=== PATIENT | female | born 1970 | race Hispanic/Latino ===

== ENCOUNTER 2020-08-08 15:38 | Emergency (ER) | payer SELFPAY ==
[2020-08-08 15:50] VITALS: BP 159/77; PULSE 88; RESP 18; TEMP 36.6; O2SAT 100
[2020-08-08 16:19] LABS: INR 1.1 (0.9-1.3); Prothrombin Time 12.2 SECONDS (10.1-12.7)
[2020-08-08 16:21] LABS: PTT Partial Thromboplastin Tim 30 SECONDS (26.4-36.2)
[2020-08-08 16:26] LABS: Alanine Aminotransferase 33 IU/L (<35); Albumin 4.5 g/dL (3.5-5.0); Albumin Globulin Ratio 1.3 (1.0-2.8); Alkaline Phosphatase 143 U/L (38-126); Aspartate Aminotransferase 29 IU/L (14-36); BUN Creatinine Ratio 22.7 (6-22); Bilirubin Total 0.6 mg/dL (0.2-1.3); Blood Urea Nitrogen 10 mg/dL (7-17); Calcium 9.5 mg/dL (8.4-10.2); Carbon Dioxide 22 mmol/L (22-32); Chloride 99 mmol/L (98-107); Estimated Glomerular Filt Rate > 60.0 mL/min (>60); Globulin 3.5 g/dL (1.7-4.1); Glucose 138 mg/dL (70-100); HEMOLYSIS < 15 (0-50); Lipase 48 U/L (23-300); Potassium 3.6 mmol/L (3.4-5.1); Sodium 130 mmol/L (137-145)
[2020-08-08 16:44] LABS: Add Manual Diff / Slide Review NO; Basophils Absolute Auto 100 /uL (0-100); Basophils Percent Auto 0.9 % (0-2); Eosinophils Absolute Auto 100 /uL (0-450); Eosinophils Percent Auto 1.3 % (2-4); Hematocrit 42.3 % (36-46); Hemoglobin 14.3 g/dL (12.0-16.0); Lymphocytes Absolute Auto 3500 /uL (1100-4500); Lymphocytes Percent Auto 32.8 % (25-40); Mean Corpuscular HGB Conc 33.8 % (30-36); Mean Corpuscular Hemoglobin 28.4 PG (26-34); Mean Corpuscular Volume 84.1 fL (80-100); Monocytes Absolute Auto 600 /uL (0-900); Monocytes Percent Auto 5.7 % (3-14); Neutrophils Absolute Auto 6200 /uL (1500-7000); Neutrophils Percent Auto 59.3 % (50-75); Platelet Count 252 X10^3/uL (150-400); Red Blood Cell Count 5.03 X10^6/uL (4.0-5.2); Red Cell Distribution Width 13.9 % (11.6-14.8); White Blood Cell Count 10.6 X10^3/uL (4.5-11.0)
--- NOTE | 2020-08-08 17:16 | ED_ITS ---
HPI - Abdominal Pain General Chief Complaint: Abdominal Pain Stated Complaint: SEVERE ABD PAIN HURTS TO SIT Time Seen by Provider: 08/08/20 17:13 Source: patient Mode of arrival: Ambulatory Limitations: no limitations History of Present Illness HPI narrative: Patient is a 50-year-old female with no known medical problems presenting with periumbilical pain ongoing for last few hours. She said it started after lunch. No nausea vomiting fever or diarrhea. She denies any painful or frequent urination. MD complaint: abdominal pain Onset (ago): hour(s) Location: periumbilical Migration to: no migration Relieving factors: nothing Exacerbating factors: nothing Related Data Home Medications Medication Instructions Recorded Confirmed No Known Home Medications 09/06/19 09/06/19 Previous Rx's Medication Instructions Recorded cyclobenzaprine 10 mg tablet 10 mg PO BID #14 tab 09/06/19 Allergies Allergy/AdvReac Type Severity Reaction Status Date / Time No Known Drug Allergies Allergy Unverified 09/06/19 09:49 Review of Systems Review of Systems Narrative: GENERAL: Denies chills, fatigue, malaise, fever, sweats, travel HEENT: Denies sinus pain, ear pain, sore throat, difficulty swallowing, neck pain RESPIRATORY: Denies dyspnea, cough, wheezing, hemoptysis, sputum. CARDIOVASCULAR: Denies chest pain, palpitations, orthopnea, edema GASTROINTESTINAL: See HPI : Denies dysuria, frequency, incontinence, hematuria, urinary retention, flank pain. MUSCULOSKELETAL: Denies weakness, joint pain, or bony pain SKIN: No rash, no erythema, no pruritus NEUROLOGIC: Denies weakness, dizziness, headache, numbness, change in speech, confusion PSYCHIATRIC: No concerning psychosocial issues. 12 point review of systems is negative except for those stated above and HPI Patient History Medical History Low back pain Social History Smoking Status: Never smoker Smoking Status: Never smoker Substance Use Type: does not use Exam Initial Vital Signs Initial Vital Signs: Vital Signs Temperature 97.8 F 08/08/20 15:50 Pulse Rate 88 08/08/20 15:50 Respiratory Rate 18 08/08/20 15:50 Blood Pressure 159/77 H 08/08/20 15:50 Pulse Oximetry 100 08/08/20 15:50 GENERAL: Alert 50-year-old female appears in pain and in no acute distress. HEENT: Head atraumatic,EOMI, pupils reactive, face symmetric, moist mucous membranes CARDIOVASCULAR: Regular rate and rhythm without murmurs, rubs or gallops. RESPIRATORY: Breath sounds equal bilaterally, no wheezes rales or rhonchi. ABDOMEN: Soft, nontender. Normoactive bowel sounds all 4 quadrants. No guarding or rebound. : No CVA tenderness EXTREMITIES: Normal range of motion, no clubbing or edema. Neurovascularly intact NEUROLOGICAL: Alert and oriented x4.Normal gait and speech. SKIN: Warm, dry, no laceration, no petechiae, no rashes or lesions. Course Orders Ordered: ED Orders 08/08/20 15:23 Urine Microscopic Stat 08/08/20 15:54 EKG-12 Lead Stat 08/08/20 16:05 Complete Blood Count AUTO DIFF Stat Comprehensive Metabolic Panel Stat Lipase Stat Partial Thromboplastin Time Stat Prothrombin Time INR Stat 08/08/20 17:22 CT abdomen pelvis w con Stat Discontinued Medications Ketorolac Tromethamine (Ketorolac 60 Mg/2 Ml Vial) 30 mg IV NOW ONE Stop: 08/08/20 17:23 Last Admin: 08/08/20 17:32 Dose: 30 mg Documented by: [email or web address] Magnesium Citrate (Magnesium Citrate 300 Ml Solution) 300 ml PO NOW ONE Stop: 08/08/20 18:30 Last Admin: 08/08/20 18:35 Dose: 300 ml Documented by: [email or web address] Vital Signs Vital signs: Vital Signs - 8 hr 08/08/20 15:50 08/08/20 18:36 Temperature 97.8 F Pulse Rate 88 89 Respiratory Rate 18 16 Blood Pressure 159/77 H 124/70 Pulse Oximetry 100 97 MDM - Abdominal Pain Lab Data Attestation: I reviewed the patient's lab results. Result diagrams: 08/08/20 16:05 08/08/20 16:05 Labs: Lab Results 08/08/20 08/08/20 08/08/20 Range/Units 15:23 16:05 16:05 WBC 10.6 (4.5-11.0) X10^3/uL RBC 5.03 (4.0-5.2) X10^6/uL Hgb 14.3 (12.0-16.0) g/dL Hct 42.3 (36-46) % MCV 84.1 (80-100) fL MCH 28.4 (26-34) PG MCHC 33.8 (30-36) % RDW 13.9 (11.6-14.8) % Plt Count 252 (150-400) X10^3/uL Neut % (Auto) 59.3 (50-75) % Lymph % (Auto) 32.8 (25-40) % [place] % (Auto) 5.7 (3-14) % Eos % (Auto) 1.3 L (2-4) % Baso % (Auto) 0.9 (0-2) % Neut # (Auto) 6200 (6068-7208) /uL Lymph # (Auto) 3500 (9710-3440) /uL [place] # (Auto) 600 (0-900) /uL Eos # (Auto) 100 (0-450) /uL Baso # (Auto) 100 (0-100) /uL PT 12.2 (10.1-12.7) SECONDS INR 1.1 (0.9-1.3) APTT 30 (26.4-36.2) SECONDS Sodium (137-145) mmol/L Potassium (3.4-5.1) mmol/L Chloride (98-107) mmol/L Carbon Dioxide (22-32) mmol/L BUN (7-17) mg/dL Creatinine (0.52-1.04) mg/dL Estimated GFR (>60) mL/min BUN/Creatinine Ratio (6-22) Glucose (70-100) mg/dL Calcium (8.4-10.2) mg/dL Total Bilirubin (0.2-1.3) mg/dL AST (14-36) IU/L ALT (<35) IU/L Alkaline Phosphatase (38-126) U/L Total Protein (6.3-8.2) g/dL Albumin (3.5-5.0) g/dL Globulin (1.7-4.1) g/dL Albumin/Globulin Ratio (1.0-2.8) Lipase (23-300) U/L Urine RBC None seen (0-5/HPF) Urine WBC None seen (0-5/HPF) Urine Bacteria None seen (None) Ur Culture Indicated? Cult not indicated 08/08/20 Range/Units 16:05 WBC (4.5-11.0) X10^3/uL RBC (4.0-5.2) X10^6/uL Hgb (12.0-16.0) g/dL Hct (36-46) % MCV (80-100) fL MCH (26-34) PG MCHC (30-36) % RDW (11.6-14.8) % Plt Count (150-400) X10^3/uL Neut % (Auto) (50-75) % Lymph % (Auto) (25-40) % [place] % (Auto) (3-14) % Eos % (Auto) (2-4) % Baso % (Auto) (0-2) % Neut # (Auto) (2735-8347) /uL Lymph # (Auto) (0105-9415) /uL [place] # (Auto) (0-900) /uL Eos # (Auto) (0-450) /uL Baso # (Auto) (0-100) /uL PT (10.1-12.7) SECONDS INR (0.9-1.3) APTT (26.4-36.2) SECONDS Sodium 130 L (137-145) mmol/L Potassium 3.6 (3.4-5.1) mmol/L Chloride 99 (98-107) mmol/L Carbon Dioxide 22 (22-32) mmol/L BUN 10 (7-17) mg/dL Creatinine 0.44 L (0.52-1.04) mg/dL Estimated GFR > 60.0 (>60) mL/min BUN/Creatinine Ratio 22.7 H (6-22) Glucose 138 H (70-100) mg/dL Calcium 9.5 (8.4-10.2) mg/dL Total Bilirubin 0.6 (0.2-1.3) mg/dL AST 29 (14-36) IU/L ALT 33 (<35) IU/L Alkaline Phosphatase 143 H (38-126) U/L Total Protein 8.0 (6.3-8.2) g/dL Albumin 4.5 (3.5-5.0) g/dL Globulin 3.5 (1.7-4.1) g/dL Albumin/Globulin Ratio 1.3 (1.0-2.8) Lipase 48 (23-300) U/L Urine RBC (0-5/HPF) Urine WBC (0-5/HPF) Urine Bacteria (None) Ur Culture Indicated? Point of care testing: Point of Care Testing Test Results Negative Urine Dip Bedside Urine Glucose Negative Bedside Urine Bilirubin - Negative Bedside Urine Ketone ++ 40 Urine Specific [place] 1.015 Bedside Urine Occult Blood - Negative Bedside Urine pH 8 Bedside Urine Protein - Negative Bedside Urine Urobilinogen - Negative Bedside Urine Nitrite - Negative Bedside Urine Leukocytes - Negative Esterase Imaging Data CT scan - abdomen/pelvis: Radiologist's Impression: PROCEDURE: CT ABDOMEN PELVIS W CON INDICATIONS: periumbilical pain TECHNIQUE: After the administration of intravenous contrast, 5 mm thick sections acquired from the diaphragm to the symphysis. 5 mm coronal and sagittal reformats were acquired. For radiation dose reduction, the following was used: automated exposure control, adjustment of mA and/or kV according to patient size. COMPARISON: None. FINDINGS: Image quality: Excellent. ABDOMEN: Lung bases: Lung bases are clear. Heart size is normal. Solid organs: Liver is normal in size and enhancement. Gallbladder is relatively poorly seen but likely is normal, with motion blurring the gallbladder margins. Biliary system is non dilated. Pancreas enhances normally. Spleen is normal in size and enhancement. No adrenal nodules. Kidneys demonstrate normal size and enhancement, without hydronephrosis. Peritoneum and bowel: Bowel loops demonstrate normal wall thickness and caliber. No free fluid or air. Nodes and vessels: No retroperitoneal or mesenteric adenopathy by size criteria. Aorta and inferior vena cava are normal in size. Miscellaneous: No ventral hernias. PELVIS: Genitourinary: Bladder wall thickness is normal. Miscellaneous: No inguinal hernias or adenopathy. An elongated appendix is seen at the right lower quadrant, with no evidence of inflammation. Small bowel loops are mildly dilated within the lower abdomen and pelvis measuring up to 3.1 cm in maximal dimension. An etiology for this finding is indeterminate. Bones: No suspicious bony lesions. No vertebral body compression fractures. IMPRESSION: No appendicitis present. No abscess found. Small bowel loops are prominent in caliber within the lower abdomen pelvis, but without pneumatosis or a helical site of small bowel obstruction. Small-bowel ileus is the likely cause. Dictated by: Uriel Becker M.D. on 08/08/2020 at 18:10 MDM Narrative Medical decision making narrative: Patient's pain is slightly improved after Toradol. Blood work and CT are overall reassuring. CT does suggest possible ileus. But no bowel obstruction she also has no prior history of surgery. Recommend magnesium citrate, and return to ED if pain is worsening. Discharge Plan Departure Patient Disposition: Home Clinical Impression: Abdominal pain Qualifiers: Abdominal location: periumbilical Qualified Code(s): R10.33 - Periumbilical pain Instructions: DI for Abdominal Pain-Adult Activity Restrictions/Additional Instructions: *You have been diagnosed with abdominal pain *What to do: Increase activity as tolerated. May increase food as tolerated *Continue to take medications as directed Tylenol 650 mg 346 hours if needed for [id number] pain Take magnesium citrate 1/2 bottle wait 6 hours if still having pain and no bowel movement then take the other half *Follow up with your primary care provider in 2-3 days *Return to ER if you should have increasing pain, persistent vomiting, diarrhea, fever or any new, worsening or concerning symptoms Prescriptions: No Action No Known Home Medications RF: 0 cyclobenzaprine 10 mg tablet 10 mg PO BID Qty: 14 RF: 0 Stand Alone Forms: Work Release Note
--- NOTE | 2020-08-08 17:22 | DI.CT.S_ITS ---
PROCEDURE: CT ABDOMEN PELVIS W CON INDICATIONS: periumbilical pain TECHNIQUE: After the administration of intravenous contrast, 5 mm thick sections acquired from the diaphragm to the symphysis. 5 mm coronal and sagittal reformats were acquired. For radiation dose reduction, the following was used: automated exposure control, adjustment of mA and/or kV according to patient size. COMPARISON: None. FINDINGS: Image quality: Excellent. ABDOMEN: Lung bases: Lung bases are clear. Heart size is normal. Solid organs: Liver is normal in size and enhancement. Gallbladder is relatively poorly seen but likely is normal, with motion blurring the gallbladder margins. Biliary system is non dilated. Pancreas enhances normally. Spleen is normal in size and enhancement. No adrenal nodules. Kidneys demonstrate normal size and enhancement, without hydronephrosis. Peritoneum and bowel: Bowel loops demonstrate normal wall thickness and caliber. No free fluid or air. Nodes and vessels: No retroperitoneal or mesenteric adenopathy by size criteria. Aorta and inferior vena cava are normal in size. Miscellaneous: No ventral hernias. PELVIS: Genitourinary: Bladder wall thickness is normal. Miscellaneous: No inguinal hernias or adenopathy. An elongated appendix is seen at the right lower quadrant, with no evidence of inflammation. Small bowel loops are mildly dilated within the lower abdomen and pelvis measuring up to 3.1 cm in maximal dimension. An etiology for this finding is indeterminate. Bones: No suspicious bony lesions. No vertebral body compression fractures. IMPRESSION: No appendicitis present. No abscess found. Small bowel loops are prominent in caliber within the lower abdomen pelvis, but without pneumatosis or a helical site of small bowel obstruction. Small-bowel ileus is the likely cause. Dictated by: Uriel Becker M.D. on 08/08/2020 at 18:10 Approved by: Uriel Becker M.D. on 08/08/2020 at 18:13
[2020-08-08] MEDS: KETOROLAC 60 MG/2 ML VIAL 30 MG IV (17:32)
[2020-08-08 18:22] LABS: Bacteria Urine None Seen; RBC Urine None Seen (0-5/HPF); WBC Urine None Seen (0-5/HPF)
[2020-08-08] MEDS: MAGNESIUM CITRATE 300 ML SOLUTION PO (18:35)
[2020-08-08 18:36] VITALS: BP 124/70; PULSE 89; RESP 16; O2SAT 97
[2020-08-08 18:54] LABS: Culture Indicated Urine Cult Not Indicated
== END 2020-08-08 18:38 | disposition home or self-care (01) ==
PROVIDERS: Emergency Provider Emergency Medicine
DX: R10.33 Periumbilical pain (principal)
CPT/HCPCS: 36415; 74177; 80053; 81003; 81015; 81025; 83690; 85025; 85610; 85730; 93005; 93010; 96374; 99283; 99284; J1885; Q9967

== ENCOUNTER 2022-07-18 18:10 | Emergency (ER) | payer OTHER, SELFPAY ==
[2022-07-18 18:12] VITALS: BP 156/108; PULSE 107; RESP 15; TEMP 36.7; O2SAT 98; BMI 25.4
[2022-07-18 18:53] VITALS: BP 148/98; PULSE 102; RESP 16; TEMP 36.8; O2SAT 97
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
[2022-07-18 19:45] VITALS: BP 175/88; PULSE 106; RESP 17; TEMP 36.6; O2SAT 98
== END 2022-07-18 19:40 | disposition home or self-care (01) ==
PROVIDERS: Emergency Provider Emergency Medicine
DX: S06.0X0A Concussion without loss of consciousness, initial encounter (principal); V89.2XXA Person injured in unspecified motor-vehicle accident, traffic, initial encounter
CPT/HCPCS: 99281; 99284

== ENCOUNTER 2024-09-23 15:30 | Emergency (ER) | payer SELFPAY ==
[2024-09-23 15:47] VITALS: BP 125/75; PULSE 97; RESP 18; TEMP 36.9; O2SAT 97; BMI 21.4
[2024-09-23] MEDS: ONDANSETRON 4 MG/2 ML INJ IV (16:22)
[2024-09-23 16:34] LABS: Alanine Aminotransferase 17 IU/L (<35); Albumin 4.4 g/dL (3.5-5.0); Albumin Globulin Ratio 1.4 (1.0-2.8); Alkaline Phosphatase 123 U/L (38-126); Aspartate Aminotransferase 23 IU/L (14-36); BUN Creatinine Ratio 43.8 (6-22); Bilirubin Total 0.7 mg/dL (0.2-1.3); Blood Urea Nitrogen 14 mg/dL (7-17); Calcium 9.7 mg/dL (8.4-10.2); Carbon Dioxide 20 mmol/L (22-32); Chloride 102 mmol/L (98-107); Estimated Glomerular Filt Rate > 60 mL/min (>60); Globulin 3.2 g/dL (1.7-4.1); Glucose 307 mg/dL (70-100); HEMOLYSIS 25 (0-50); Lipase 56 U/L (23-300); Potassium 4.3 mmol/L (3.4-5.1); Sodium 132 mmol/L (137-145); Total Protein 7.6 g/dL (6.3-8.2)
[2024-09-23 16:35] LABS: Add Manual Diff / Slide Review NO; Basophils Absolute Auto 100 /uL (0-100); Basophils Percent Auto 1.3 % (0-2); Eosinophils Absolute Auto 100 /uL (0-450); Eosinophils Percent Auto 1.3 % (2-4); Hematocrit 44.4 % (36-46); Hemoglobin 15.2 g/dL (12.0-16.0); Lymphocytes Absolute Auto 2300 /uL (1100-4500); Lymphocytes Percent Auto 32.3 % (25-40); Mean Corpuscular HGB Conc 34.3 % (30-36); Mean Corpuscular Hemoglobin 30.5 PG (26-34); Mean Corpuscular Volume 88.8 fL (80-100); Monocytes Absolute Auto 400 /uL (0-900); Monocytes Percent Auto 6.2 % (3-14); Neutrophils Absolute Auto 4200 /uL (1500-7000); Neutrophils Percent Auto 58.9 % (50-75); Platelet Count 281 X10^3/uL (150-400); Red Cell Distribution Width 12.7 % (11.6-14.8); White Blood Cell Count 7.2 X10^3/uL (4.5-11.0)
[2024-09-23 17:30] VITALS: BP 107/73; PULSE 95; RESP 12; O2SAT 99
--- NOTE | 2024-09-23 18:56 | DI.US.S_ITS ---
PROCEDURE: US ABDOMEN LIMITED INDICATIONS: PAIN TECHNIQUE: Real-time scanning was performed of the abdominal and retroperitoneal organs, with image documentation. COMPARISON: None. FINDINGS: Liver: Liver is normal in size and homogeneous in echotexture. Three calcifications in the right hepatic lobe with the largest measuring 1.2 cm. Gallbladder: Several gallstones measuring up to 1.8 cm. No wall thickening. No pericholecystic edema. Negative sonographic Dennison's sign. Biliary ducts: Intrahepatic bile ducts are non-dilated. Extrahepatic bile duct caliber measures 5.1 mm. Normal is 6-7 mm or less in diameter, or 10 mm or less post-cholecystectomy. Pancreas: Visualized portions of the pancreas are sonographically normal. Miscellaneous: No free abdominal fluid. IMPRESSION: Cholelithiasis without sonographic evidence of acute cholecystitis. Dictated by: Amador Jang M.D. on 09/23/2024 at 20:28 Approved by: Amador Jang M.D. on 09/23/2024 at 20:29
[2024-09-23 20:10] LABS: Bacteria Urine Few (2-10); Calcium Oxalate Crystals Urine Many; Culture Indicated Urine Cult Not Indicated; RBC Urine None Seen (0-5/HPF); Squamous Epithelial Cell Urine None Seen (0-5/HPF); Urine Volume 10mL (spun); WBC Urine None Seen (0-5/HPF)
--- NOTE | 2024-09-23 20:39 | ED_ITS ---
HPI - General Adult General Chief complaint: Abdominal Pain Stated complaint: lower right abd pain Time Seen by Provider: 09/23/24 18:35 Source: patient Mode of arrival: Ambulatory History of Present Illness HPI narrative: 54-year-old woman with no significant medical history has 24 hours of severe right upper quadrant pain radiating through to the back. She does describe it has colicky in nature. She has been diagnosed with gallstones previously. no vomiting, no fevers. She has not having diarrhea. No chest pain or palpitation Related Data Previous Rx's Medication Instructions Recorded oxycodone-acetaminophen 5 mg-325 1 tab PO Q6H PRN pain #14 tabs 09/23/24 mg tablet Allergies Allergy/AdvReac Type Severity Reaction Status Date / Time No Known Drug Allergies Allergy Verified 09/23/24 15:46 Review of Systems Review of Systems Narrative: Pertinent positive and negative findings as per HPI Patient History Medical History (Updated 09/23/24 @ 20:48 by Corinne Gallardo MD) Gallstones Low back pain Social History Smoking Status: Never smoker Smoking Status: Never smoker alcohol intake frequency: holidays/special occasions only Exam Initial Vital Signs Initial Vital Signs: Vital Signs Temperature 98.5 F 09/23/24 15:47 Pulse Rate 97 H 09/23/24 15:47 Respiratory Rate 18 09/23/24 15:47 Blood Pressure 125/75 09/23/24 15:47 Pulse Oximetry 97 09/23/24 15:47 Oxygen Delivery Method Room Air 09/23/24 15:47 General: Healthy appearing, in no acute distress. Able to give a complete and coherent history. Well-nourished well-developed HEENT: Moist mucous membranes, normal sclera with reactive pupils, Respiratory: Lungs are clear to auscultation, no wheezing no rales no rhonchi. Full and symmetrical air movement Cardiac: Regular rate and rhythm Abdomen: Soft, tenderness in the right upper quadrant without rebound or guarding. Skin: Warm and dry, no rashes Neurologic: Grossly neurologically intact with no obvious asymmetries or abnormalities Extremities: No trauma, well perfused Psych: Cooperative, appropriate insight and affect Course Orders Ordered: ED Orders 09/23/24 16:00 Complete Blood Count AUTO DIFF Stat Comprehensive Metabolic Panel Stat Lipase Stat 09/23/24 18:56 US abdomen limited Stat 09/23/24 19:25 Urine Microscopic Stat Ondansetron HCl (Ondansetron 4 Mg/2 Ml Inj) 4 mg IV NOW PRN PRN Reason: Nausea And Vomiting Last Admin: 09/23/24 16:22 Dose: 4 mg Documented By: STAR Ondansetron HCl (Ondansetron 4 Mg Odt) 4 mg PO NOW PRN PRN Reason: Nausea And Vomiting Vital Signs Vital signs: Vital Signs - 8 hr 09/23/24 15:47 09/23/24 17:30 Temperature 98.5 F Pulse Rate 97 H 95 H Respiratory Rate 18 12 Blood Pressure 125/75 107/73 Pulse Oximetry 97 99 Oxygen Delivery Method Room Air Room Air Medical Decision Making Lab Data 09/23/24 16:00 09/23/24 16:00 Labs: Lab Results 09/23/24 09/23/24 Range/Units 16:00 19:25 WBC 7.2 (4.5-11.0) X10^3/uL RBC 5.00 (4.0-5.2) X10^6/uL Hgb 15.2 (12.0-16.0) g/dL Hct 44.4 (36-46) % MCV 88.8 (80-100) fL MCH 30.5 (26-34) PG MCHC 34.3 (30-36) % RDW 12.7 (11.6-14.8) % Plt Count 281 (150-400) X10^3/uL Neut % (Auto) 58.9 (50-75) % Lymph % (Auto) 32.3 (25-40) % Greer % (Auto) 6.2 (3-14) % Eos % (Auto) 1.3 L (2-4) % Baso % (Auto) 1.3 (0-2) % Neut # (Auto) 4200 (5734-4328) /uL Lymph # (Auto) 2300 (2138-2916) /uL Greer # (Auto) 400 (0-900) /uL Eos # (Auto) 100 (0-450) /uL Baso # (Auto) 100 (0-100) /uL Sodium 132 L (137-145) mmol/L Potassium 4.3 (3.4-5.1) mmol/L Chloride 102 (98-107) mmol/L Carbon Dioxide 20 L (22-32) mmol/L BUN 14 (7-17) mg/dL Creatinine 0.32 L (0.52-1.04) mg/dL Estimated GFR > 60 (>60) mL/min BUN/Creatinine Ratio 43.8 H (6-22) Glucose 307 H (70-100) mg/dL Calcium 9.7 (8.4-10.2) mg/dL Total Bilirubin 0.7 (0.2-1.3) mg/dL AST 23 (14-36) IU/L ALT 17 (<35) IU/L Alkaline Phosphatase 123 (38-126) U/L Total Protein 7.6 (6.3-8.2) g/dL Albumin 4.4 (3.5-5.0) g/dL Globulin 3.2 (1.7-4.1) g/dL Albumin/Globulin Ratio 1.4 (1.0-2.8) Lipase 56 (23-300) U/L Urine RBC None seen (0-5/HPF) Urine WBC None seen (0-5/HPF) Ur Squamous Epith Cells None seen (0-5/HPF) Calcium Oxalate Crystal Many H Urine Bacteria Few (2-10) H (None) Ur Culture Indicated? Cult not indicated Vol Urine Centrifuged 10ml (spun) Point of Care Testing Test Results Negative Urine Dip Bedside Urine Glucose 1000 mg/dl Bedside Urine Bilirubin - Negative Bedside Urine Ketone + 15 Urine Specific [place] 1.020 Bedside Urine Occult Blood - Negative Bedside Urine pH 6.0 Bedside Urine Protein - Negative Bedside Urine Urobilinogen - Negative Bedside Urine Nitrite - Negative Bedside Urine Leukocytes - Negative Esterase Point of care testing: Point of Care Testing Test Results Negative Urine Dip Bedside Urine Glucose 1000 mg/dl Bedside Urine Bilirubin - Negative Bedside Urine Ketone + 15 Urine Specific [place] 1.020 Bedside Urine Occult Blood - Negative Bedside Urine pH 6.0 Bedside Urine Protein - Negative Bedside Urine Urobilinogen - Negative Bedside Urine Nitrite - Negative Bedside Urine Leukocytes - Negative Esterase MDM Narrative Medical decision making narrative: 54-year-old woman with a history of gallstones but no significant gallbladder colic presents with 24 hours of significant and increasing right upper quadrant pain. Repeat ultrasound confirms mobile gallstones without evidence of acute cholecystitis. Lab work does not show evidence of acute infection or increased liver function studies. Discussed findings with patient and her son. At this point we will recommend pain medication as tolerated, low-fat diet as tolerated and follow [facility] for discussion of outpatient cholecystectomy. This point there was no indication for emergent surgery, inpatient care further imaging and she is safe for discharge Discharge Plan Departure Patient Disposition: Home Clinical Impression: Gallstones, Gallbladder colic Instructions: DI for Gallstones Activity Restrictions/Additional Instructions: thank you for coming in today you do have gallstones. Right now, they are not blocking anything or causing infection. Your lab work looking for infection and abnormal liver studies or pancreatic complications are all normal using 400 mg of ibuprofen (2 [id number] pills) and 1 Tylenol every 6 hours can be very helpful in controlling pain. eating as low fat diet as you can tolerate we will also help. Your gallbladder helps to just fat so if there is no fat to digest, it does not have to work as hard and will not hurt as much I have sent a prescription for Percocet, a narcotic to [facility]. You can add this ibuprofen for severe pain I would recommend you follow up with our General surgery Clinic. You can discuss having your gallbladder removed as an outpatient so you do not continue to have this pain call [facility] at [phone] to schedule an appointment if you find that you are getting worse, the pain is not controllable, you are having fevers, you are vomiting you do need to return to the ER bairon por venir hoy tienes c?lculos biliares. En julia momento, no est?n bloqueando nada ni causando infecci?n. Paulina an?lisis de laboratorio en busca de infecci?n y estudios hep?ticos anormales o complicaciones pancre?lawrence son normales. Usar 400 mg de ibuprofeno (2 pastillas de venta maribel) y 1 Tylenol cada 6 horas puede resultar muy ?til para controlar el dolor. Tambi?n le ayudaremos a seguir chiquis dieta collier baja en grasas nikolai pueda tolerar. White ves?cula biliar ayuda a simplemente engordar, por lo que si no hay grasa para digerir, no tiene que trabajar collier anurag y no le doler? tanto. Le recomendar?a que daylin un seguimiento con nuestra [facility]. Puede hablar sobre la extirpaci?n de la ves?cula biliar de forma ambulatoria para no seguir teniendo julia dolor. Si nota que est? empeorando, que el dolor no es controlable, que tiene fiebre o que est? vomitando, debe regresar a la michael de emergencias. Prescriptions: New oxycodone-acetaminophen 5-325 mg tablet 1 tab PO Q6H PRN (Reason: pain) Qty: 14 0RF Referrals: Miscellaneous,Doctor, MD [Primary Care Provider] - Stand Alone Forms: Patient Portal/API/Survey
[2024-09-23 20:58] VITALS: BP 125/63; PULSE 82; RESP 16; O2SAT 100
== END 2024-09-23 20:59 | disposition home or self-care (01) ==
PROVIDERS: Emergency Medicine; Emergency Provider Emergency Medicine
DX: K80.20 Calculus of gallbladder without cholecystitis without obstruction (principal)
CPT/HCPCS: 36415; 76705; 80053; 81003; 81015; 81025; 83690; 85025; 96374; 99284; J2405